=== PATIENT | male | born 1955 | race Caucasian/White ===

== ENCOUNTER → 2024-03-28 09:46 | Outpatient (REF) | payer MEDICARE, OTHER, SELFPAY | LOC: RAD 09:46 | PROVIDERS: ATTENDING PHYSICIAN Surgery Vascular Surgery; FAMILY PHYSICIAN Family Medicine | DX: I65.29 Occlusion and stenosis of unspecified carotid artery (principal); I73.9 Peripheral vascular disease, unspecified; I65.23 Occlusion and stenosis of bilateral carotid arteries | CPT/HCPCS: 93880; 93922; 93925 ==